=== PATIENT | female | born 1975 | race Caucasian/White ===

== ENCOUNTER 2016-12-02 23:00 | Inpatient (IN) | payer MEDICAID ==
--- NOTE | ~2016-12-02 | HP ---
Unit #: [id number] #: [id number] Patient: THEODORE HILLS [id number] [place] [address] [id number] I MR#: [id number] NAME: THEODORE HILLS ROOM: [facility] Age: 41 Sex: F Admission Date: 12/03/2016 : 1975 Attending Physician: Hollis Traore M.D. Admitting Physician: Hollis Traore M.D. Primary Care Physician: No Primary Care Physician HISTORY AND PHYSICAL ADDENDUM Theodore is a 41-year-old admitted to [facility] because of her polysubstance abuse. I saw her for her admission H and P on 12/03/16. At that time, she gave no history of hypothyroidism or seizure disorder. In reviewing old records from [facility] in [place], she has history of hypothyroidism. Recent TSH was 18.5. She admits she has been noncompliant with medication for years. She also has a history of a seizure disorder and, again, admits to being noncompliant with seizure medications for "many months." Plan will be to start Keppra 500 mg 1 p.o. b.i.d. After discussing with her, I will not resume any kind of thyroid medication. She tells me that she will not continue it after discharge. I did encourage her to follow up with primary care physician and reconsider resuming her thyroid medication. Dictated by... Malissa Francisco P.A.-C. for Anderson Conrad TD: 12/04/2016 09:00 JOB #: [id number] HISTORY AND PHYSICAL Page 1 of 1 X Malissa Francisco HISTORY AND PHYSICAL
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
--- NOTE | ~2016-12-02 | HP ---
Unit #: [id number] #: [id number] Patient: THEODORE HILLS [id number] [place] [address] [id number] I MR#: [id number] NAME: THEODORE HILLS. ROOM: P177 Age: 41 Sex: F Admission Date: 12/03/2016 : 1975 Attending Physician: Hollis Traore M.D. Admitting Physician: Hollis Traore M.D. Primary Care Physician: No Primary Care Physician HISTORY AND PHYSICAL HISTORY OF PRESENT ILLNESS Theodore is a 41-year-old admitted to [facility] because of her polysubstance abuse, which includes alcohol and methamphetamine. PAST MEDICAL HISTORY 1. Long history of illicit substance abuse to include methamphetamine. 2. History of alcohol abuse. 3. Cirrhosis. A. History of ascites. PAST SURGICAL HISTORY 1. C section x4. 2. Cholecystectomy. ALLERGIES Sulfa. SOCIAL HISTORY Smokes one pack per day. Drinks at least a pint plus 12 beers on a daily basis. Admits to a history of illicit substance abuse to include methamphetamine. FAMILY HISTORY Medically noncontributory. REVIEW OF SYSTEMS CONSTITUTIONAL: No fever or chills. HEENT: Denies any sore throat, ear pain or runny nose. CARDIOVASCULAR: Denies chest pain, irregular heart rhythm or palpitations. CHEST: Denies shortness of breath or cough. No hemoptysis. GASTROINTESTINAL: Denies nausea, vomiting, diarrhea or chronic constipation. ENDOCRINE: Denies history of increased thirst or urination. No recent significant weight loss or gain. GENITOURINARY: Denies dysuria, frequency, or hematuria. SKIN: Denies any rashes. HEMATOLOGIC: Denies history of increased bleeding or bruising. MUSCULOSKELETAL: Denies any hot, swollen joints. No generalized muscle pain. NEUROLOGIC: Denies problems with vision or speech. No frequent, severe headaches. No numbness, tingling or weakness in any extremities. Denies loss of bladder or bowel control. Unit #: [id number] #: [id number] Patient: THEODORE HILLS CURRENT MEDICATIONS Detox protocol. PHYSICAL EXAMINATION GENERAL: Alert, well nourished, and in no apparent distress. VITAL SIGNS: Blood pressure 110/66, heart rate 86, respirations 16, temperature 98.6, weight 165 pounds, and height 5 feet, 5 inches. SKIN: Warm and dry without rash or lesion. HEENT: Normocephalic. TMs not viewed. Oral and nasal passages clear. Conjunctivae clear. PERRLA. EOMs intact. NECK: Supple without lymphadenopathy or thyromegaly. HEART: Regular rate and rhythm without murmur. LUNGS: Clear. ABDOMEN: Soft, nontender. : Not done. EXTREMITIES: No evidence of cyanosis, clubbing or edema. Moves all without focal deficit. NEUROLOGICAL: Grossly within normal limits. Cranial Nerves: II: Visual garza are intact. III, IV AND : Extraocular movements are intact. Pupils are equal, round and reactive to light. V: Facial sensation is grossly normal. VII: Facial movements and expression are normal. VIII: Auditory acuity grossly intact. IX, X: Uvula is midline. Phonation is normal. XI: Patient shrugs shoulders and turns head normally. XII: Tongue protrudes in the midline. Sensory and Motor Function: Sensory and motor sensation is grossly normal. Motor: moves all extremities well. Coordination: Gait is normal. Deep Tendon Reflexes: Intact. IMPRESSION Psychiatric admission. RECOMMENDATIONS PSYCHIATRIC: Per psychiatrist. MEDICAL: I see no contraindication to participating in facility's activities. MEDICAL PROGNOSIS Good. MEDICAL CONDITION Stable. Dictated by... Bryn HuffmanAManjula. for Anderson Conrad/brandie TD: 12/04/2016 08:49 JOB #: [id number] Unit #: [id number] #: [id number] Patient: THEODORE HILLS HISTORY AND PHYSICAL Page 1 of 1 X Malissa Francisco HISTORY AND PHYSICAL
--- NOTE | ~2016-12-02 | CO ---
Unit #: [id number] #: [id number] Patient: THEODORE HILLS [id number] [place] [address] [id number] I MR#: [id number] NAME: THEODORE HILLS. ROOM: [facility] Age: 41 Sex: F Admission Date: 12/03/2016 : 1975 Attending Physician: Hollis Traore M.D. Consultation Date: 12/03/2016 CONSULTATION REPORT Please see H and P addendum dated 12/03/2016. Dictated by... Malissa Francisco P.A.-C. for Anderson Conrad/gustavo TD: 12/05/2016 16:50 JOB #: [id number] CONSULTATION REPORT Page 1 of 1 X Malissa Francisco X CONSULTATION REPORT
--- NOTE | ~2016-12-02 | DS ---
Unit #: [id number] #: [id number] Patient: THEODORE HILLS [id number] [place] [address] [id number] I MR#: [id number] NAME: THEODORE HILLS. ROOM: 77 Age: 41 Sex: F Admission Date: 12/03/2016 : 1975 Discharge Date: 12/05/2016 Attending Physician: Hollis Traore M.D. Primary Care Physician: Primary Care Physician No DISCHARGE SUMMARY REASON FOR ADMISSION Ms. Hills is a 41-year-old woman, who has been abusing heroin and occasional alcohol. She has also used amphetamines recently. She had suicidal thoughts with no specific plan and was admitted for stabilization. DIAGNOSTIC STUDIES Please see hospital chart. HOSPITAL COURSE The patient was admitted and placed on the alcohol detox protocol. Keppra 500 mg twice daily was restarted due to history of seizures and trazodone provided for insomnia. The patient had minimal detox symptomatology during the hospitalization and had no significant adverse events from detox. On the date of discharge, she contracted for safety with followup through [facility]. DISCHARGE DIAGNOSES [place] I Alcohol dependence withdraw uncomplicated. Opiate abuse. Amphetamine abuse. Mood disorder, NOS. [place] II No diagnosis. [place] III History of withdrawal seizures. History of hypothyroidism. [place] IV [place] V INSTRUCTIONS TO PATIENT The patient is to follow up with primary care physician and [facility]. DISCHARGE MEDICATIONS Keppra 500 mg twice daily for seizures CONDITION AT DISCHARGE Fair. PROGNOSIS Fair. DIET AND ACTIVITY Ad mala. Unit #: [id number] #: [id number] Patient: THEODORE HILLS Dictated by... Anderson Brewer/sheeba TD: 01/22/2017 06:28 JOB #: [id number] DISCHARGE SUMMARY Page 1 of 1 X Hollis Traore MD X DISCHARGE SUMMARY
[2016-12-04 09:47] LABS: BASOPHIL# 0.1 X10e3 (0-0.3); BASOPHIL% 0.8 % (0-2.5); EOSINOPHIL# 0.3 X10e3 (0-0.7); EOSINOPHIL% 2.3 % (0.0-7.0); HEMATOCRIT 42.8 % (35.0-45.0); HEMOGLOBIN 13.8 gm/dL (12.0-16.0); LYMPHOCYTE# 2.7 X10e3 (1.0-3.5); LYMPHOCYTE% 22.3 % (17.0-45.0); MEAN CELL VOLUME 93.9 FL (83-96); MEAN CORPUSCULAR HEMOGLOBIN 30.2 PG (28-34); MEAN CORPUSCULAR HGB CONC 32.1 g/dL (30-36); MEAN PLATELET VOLUME 9.6 FL (6.5-11.5); MONOCYTE# 0.8 X10e3 (0-1.0); MONOCYTE% 6.3 % (3.0-12.0); NEUTROPHIL# 8.2 X10e3 (1.5-7.1); NEUTROPHIL% 68.3 % (40-75); PLATELET COUNT 202 X10e3 (140-420); RED BLOOD COUNT 4.56 X10e (3.90-5.30); RED CELL DISTRIBUTION WIDTH 13.9 % (11.0-15.5); WHITE BLOOD COUNT 12.1 X10e3 (4.0-10.5)
[2016-12-04 09:51] LABS: DIFF IND NO
== END 2016-12-05 16:25 | disposition home or self-care (01) | DRG 897 ==
LOC: P1E 12-03 04:20
PROVIDERS: Physician Assistant Medical
PROC: HZ2ZZZZ Detoxification Services for Substance Abuse Treatment (ICD-10-PCS; principal; 2016-12-03)
DX: F10.239 Alcohol dependence with withdrawal, unspecified (principal); F17.210 Nicotine dependence, cigarettes, uncomplicated; Z88.2 Allergy status to sulfonamides; Z81.1 Family history of alcohol abuse and dependence
CPT/HCPCS: 85025; 86592